=== PATIENT | female | born 1955 | race Caucasian/White ===

== ENCOUNTER 2017-02-14 11:01 | Emergency (ER) | payer BC, OTHER ==
[2017-02-14 11:13] VITALS: PULSE 74; RESP 20; TEMP 98.2; O2SAT 97
--- NOTE | 2017-02-14 11:52 | C.PDOC ---
History Of Present Illness 61 yr old female with PMHx of chronic neck pain, presents to the ER stating she follows up with DR. Amaral for pain management. States he gives her pain medication and also has tried physical therapy with no relief. Patient states she take Tramadol but is not improving. Patient denies new trauma, vision changes, nausea, vomiting, headache, weakness or numbness Time Seen by Provider: 02/14/17 11:36 Chief Complaint (Nursing): Medical Clearance History Per: Patient History/Exam Limitations: no limitations Onset/Duration Of Symptoms: Persistent Past Medical History Reviewed: Historical Data, Nursing Documentation, Vital Signs Vital Signs: Last Vital Signs Temp 98.2 F 02/14/17 11:10 Pulse 74 02/14/17 11:10 Resp 20 02/14/17 11:10 BP 136/75 02/14/17 11:57 Pulse Ox 97 02/14/17 12:09 - Medical History PMH: HTN, Hyperthyroidism, TIA (stroke) Family History: States: No Known Family Hx - Social History Hx Tobacco Use: No Hx Alcohol Use: No Hx Substance Use: No - Immunization History Hx Tetanus Toxoid Vaccination: No Hx Influenza Vaccination: No Hx Pneumococcal Vaccination: No Review Of Systems Except As Marked, All Systems Reviewed And Found Negative. Eyes: Negative for: Vision Change Gastrointestinal: Negative for: Nausea, Vomiting Musculoskeletal: Positive for: Neck Pain (Chronic neck pain) Neurological: Negative for: Weakness, Numbness, Headache Physical Exam - Physical Exam Appears: Non-toxic, No Acute Distress Skin: Warm, Dry, No Rash Head: Atraumatic, Normacephalic Eye(s): bilateral: Normal Inspection, PERRL, EOMI Oral Mucosa: Moist Neck: Paracervical Tenderness, Supple Cardiovascular: Rhythm Regular, No Murmur Respiratory: Normal Breath Sounds, No Rales, No Rhonchi, No Stridor, No Wheezing Extremity: Normal ROM, No Swelling Neurological/Psych: Oriented x3, Normal Speech, Normal Motor ED Course And Treatment O2 Sat by Pulse Oximetry: 97 (RA) Pulse Ox Interpretation: Normal Medical Decision Making Medical Decision Making: IMPRESSION: Chronic neck pain NOTE: * Will try Tylenol #3 and Flexeril. * Patient is provided with pain management information for follow up. Disposition Counseled Patient/Family Regarding: Diagnosis, Need For Followup, Rx Given - Disposition Disposition: HOME/ ROUTINE Disposition Time: 11:50 Condition: STABLE Additional Instructions: [facility] with [facility] telephone number given take pain medications as prescribed stop ultram return to hospital if symptoms worsens or progress Prescriptions: Acetaminophen/Codeine [Tylenol/Codeine 300 MG/30 MG] 1 tab PO Q6H PRN #12 tab PRN Reason: Pain, Severe (8-10) Cyclobenzaprine [Flexeril] 10 mg PO TID PRN #12 tab PRN Reason: Other Instructions: Musculoskeletal Pain (ED) Forms: [employer] (Finnish), Gen Discharge Inst Hong [place]er, [employer] (H[place]er) Print Language: LAO - Clinical Impression Clinical Impression: Neck pain - Scribe Statement The provider has reviewed the documentation as recorded by the Rebeca Cortes Provider Attestation: All medical record entries made by the Rebeca were at my direction and personally dictated by me. I have reviewed the chart and agree that the record accurately reflects my personal performance of the history, physical exam, medical decision making, and the department course for this patient. I have also personally directed, reviewed, and agree with the discharge instructions and disposition.
[2017-02-14 11:59] VITALS: BP 136/75
== END 2017-02-14 11:59 | disposition home or self-care (01) ==
LOC: C.ER 11:01
DX: M54.2 Cervicalgia (principal)